=== PATIENT | female | born 1930 | race Two or more races ===

== ENCOUNTER 2017-04-01 20:01 | Emergency (ER) | payer MEDICARE, OTHER ==
[~2017-04-01] VITALS: Ht 157.5 cm; Wt 86.2 kg
[2017-04-01] MEDS ORDERED: [UNRECOGNIZED DRUG - OTHER] (20:17)
[2017-04-01] MEDS ORDERED: insulin N (20:17)
[2017-04-01] MEDS ORDERED: INSULIN R (20:17)
[2017-04-01] MEDS ORDERED: metoprolol (20:17)
[2017-04-01] MEDS ORDERED: TRAMADOL HCL 50 MG TABLET PO ONE (20:45)
--- NOTE | 2017-04-01 20:47 | NUR ---
Patient discharged to home in stable conditon. Written and verbal after care instructions given. Patient verbalizes understanding of instructions.
[2017-04-01] MEDS ORDERED: TRAMADOL HCL 50 MG TABLET ONE (21:00)
== END 2017-04-01 20:48 | disposition home or self-care (01) ==
LOC: ER 20:01
DX: M25.551 Pain in right hip (principal); M54.9 Dorsalgia, unspecified; I10 Essential (primary) hypertension; E11.9 Type 2 diabetes mellitus without complications; Z79.4 Long term (current) use of insulin; Z88.0 Allergy status to penicillin; Z88.2 Allergy status to sulfonamides; Z90.49 Acquired absence of other specified parts of digestive tract; W18.30XA Fall on same level, unspecified, initial encounter; Y92.89 Other specified places as the place of occurrence of the external cause; Y93.89 Activity, other specified; Y99.8 Other external cause status
CPT/HCPCS: A4663